=== PATIENT | female | born 2000 | race Caucasian/White ===

== ENCOUNTER 2018-12-05 05:24 | Day surgery (SDC) | payer OTHER ==
[2018-12-01 14:09] LABS: BASOPHILS % (AUTO) 0.6 % (0-1); EOSINOPHILS # (AUTO) 0.1 X10'3 (0-0.9); EOSINOPHILS % (AUTO) 0.8 % (0-6); LYMPHOCYTES # (AUTO) 2.8 X10'3 (1.1-4.8); LYMPHOCYTES % (AUTO) 38.1 % (21-51); MEAN CORPUSCULAR HEMOGLOBIN 30.8 PG (27.0-31.0); MEAN CORPUSCULAR HGB CONC 33.3 g/dL (33.0-36.5); MEAN CORPUSCULAR VOLUME 92.4 FL (78-98); MEAN PLATELET VOLUME 7.8 FL (7.4-10.4); MONOCYTES # (AUTO) 0.6 X10'3 (0-0.9); MONOCYTES % (AUTO) 7.6 % (2-12); NEUTROPHILS # (AUTO) 3.9 X10'3 (1.8-7.7); NEUTROPHILS % (AUTO) 52.9 % (42-75); PRE OP HEMATOCRIT 41.6 % (35.0-45.0); PRE OP HEMOGLOBIN 13.9 g/dL (12.0-16.0); PRE OP PLATELET COUNT 364 X10'3 (140-440); RED CELL DISTRIBUTION WIDTH 13.6 % (11.5-14.5)
[2018-12-01 14:19] LABS: ALBUMIN 4.3 G/DL (3.4-5.0); ALKALINE PHOSPHATASE 81 IU/L (20-180); BLOOD UREA NITROGEN 17 MG/DL (7-18); CALCIUM 9.3 MG/DL (8.5-10.1); CHLORIDE 104 MMOL/L (99-107); CREATININE 0.81 MG/DL (0.40-0.90); PRE OP ALT 24 U/L (30-65); PRE OP ANION GAP 10 (8-16); PRE OP AST 14 U/L (10-37); PRE OP BILIRUB, TOTAL 0.8 MG/DL (0.0-1.0); PRE OP GLUCOSE 83 MG/DL (70-104); PRE OP POTASSIUM 3.4 MMOL/L (3.4-5.1); PRE OP SODIUM 143 MMOL/L (135-145); TOTAL CARBON DIOXIDE 28.9 MMOL/L (24-32); TOTAL PROTEIN 8.5 G/DL (6.4-8.2); eGFR 90 ML/MIN
[2018-12-01 14:39] LABS: HCG SERUM QL NEGATIVE
[~2018-12-05] VITALS: Ht 162.6 cm; Wt 85.7 kg
[2018-12-05] VITALS (13 sets, daily range): BP systolic 120–140; BP diastolic 74–98
[~2018-12-05 05:24] MED LIST: NO HOME MEDS; ringers solution, lacted 1,000 ML IV SCH
[2018-12-05] MEDS ORDERED: cefazolin/dext.iso 2gm/50ml 50 ML IV ONE (05:30)
[2018-12-05] MEDS ORDERED: famotidine 20mg tablet PO ONE (05:30)
[2018-12-05] MEDS ORDERED: LIDOcaine 1% (10mg/ml) 2ml vial ONE (05:54)
[2018-12-05] MEDS ORDERED: cloNIDine hcl/PF 100mcg/ml inj ONE (07:20)
[2018-12-05] MEDS ORDERED: fentaNYL/PF 50MCG/1 ML 2ML syringe ONE (07:23)
[2018-12-05] MEDS ORDERED: MIDAZolam 5mg/5ml vial ONE (07:24)
[2018-12-05] MEDS ORDERED: dexamethasone sod phosphate 10mg/ml inj ONE (07:26)
[2018-12-05] MEDS ORDERED: sevoflurane 250ml liquid IH ONE (07:26)
[2018-12-05] MEDS ORDERED: propofol 10mg/ml 20ml vial IV ONE (07:26)
[2018-12-05] MEDS ORDERED: ondansetron/PF 4mg/2ml inj ONE (07:26)
[2018-12-05] MEDS ORDERED: HYDROcodone/acetaminophen 10/325mg tab PO PRN (08:30)
--- NOTE | 2018-12-05 08:31 | NUR ---
Received from OR via REE, accompanied by Anesthesiologist DR CASTORENA and report given by Anesthesiolgist. PT DROWSY, DENIES PAIN, SHERWOOD'S X 3, RIGHT SHOULDER W/ISB, FINGERS PWD, RIGHT SHOULDER W/ISLAND DRSG CDI, SHOULDER SLING. ICE PACK. Addendum: 12/05/18 at 0908 by Domitila Navarro RN Amended: Links added.
[2018-12-05] MEDS ORDERED: ringers solution, lacted 1,000 ML IV SCH (08:41)
[2018-12-05] MEDS ORDERED: morphine 4 MG/ML inj SYRINge IV PRN ×2 (08:45)
[2018-12-05] MEDS ORDERED: meperidine/PF 25mg/ml syringe IV PRN ×2 (08:45)
[2018-12-05] MEDS ORDERED: proCHLORperazine 10 MG/2 ml inj IV PRN (08:45)
[2018-12-05] MEDS ORDERED: ondansetron/PF 4mg/2ml inj IV PRN (08:45)
[2018-12-05] MEDS: meperidine/PF 25mg/ml syringe IV PRN ×2 (09:21→09:32)
== END 2018-12-05 10:21 | disposition home or self-care (01) ==
LOC: PAS 05:24
PROVIDERS: ATTEND Orthopaedic Surgery
DX: M75.21 Bicipital tendinitis, right shoulder (principal); M75.41 Impingement syndrome of right shoulder; G56.01 Carpal tunnel syndrome, right upper limb; Z79.899 Other long term (current) drug therapy
CPT/HCPCS: 29822; 36415; 64415; 80053; 82948; 84703; 85025; A6449; J0690; J0735; J1100; J2175; J2250; J2405; J2704; J3010; J3490; J7120; A4565; A7000; J7030